=== PATIENT | male | born 1985 | race Hispanic/Latino ===

== ENCOUNTER 2024-09-10 21:33 | Emergency (ER) | payer BC ==
[~2024-09-10] VITALS: Ht 160 cm; Wt 202.5 kg
--- NOTE | 2024-09-10 21:39 | NUR ---
UA CUP PROVIDED
--- NOTE | 2024-09-10 21:53 | ERN ---
ED Note History of Present Illness Stated Complaint: FAST HEART RATE, NAUSEA, GBW Chief Complaint: Multiple Complaints Time Seen by MD: 21:36 Time Seen by Midlevel: 21:36 Dictation: The patient is a 39-year-old male with a history of hypertension, prediabetes who presents to the emergency department with complaints of generalized weakness, tachycardia, nausea onset2 hours ago. Patient reports he was getting ready to take a shower and stood up and develop the symptoms. Patient denies any chest pain or shortness of breath. Denies any fevers. Denies any dizziness. Denies any recent illness. Allergies: Coded Allergies: No Known Allergies (Unverified Allergy, Unknown, 09/10/24) Past Medical History Past Medical History: Hypertension, Other Additional Past Medical Hx: TIA 10 YEARS AGO Surgical History: None RN Note Reviewed/Agreed w/PFSH: Yes Review of System Dictation Constitutional: Negative for fever,chills, and weight loss Eyes: Negative for injury, pain,redness, and discharge ENT: Negative for injury,pain or swelling Cardiovascular: Negative for chest pain, and edema positive for palpitations Respiratory: Negative for shortness of breath, cough, and wheezing, Abdomen/GI: Negative for abdominal pain, nausea, vomiting, diarrhea, and constipation Back: Negative for injury and pain : Negative for injury, bleeding and discharge MS/Extremity: Negative for injury and deformity Skin: Negative for rash, and discoloration Neuro: Negative for headache, numbness, tingling, and seizure positive for weakness Psych: Negative for suicide ideation, homicidal ideation, and hallucinations Initial Vital Sign VS Vital Signs Date Time Temp Pulse Resp B/P (MAP) Pulse Ox O2 Delivery O2 Flow Rate FiO2 09/10/24 21:35 98.2 84 22 171/87 99 Room Air 09/10/24 22:33 0 21 Physical Exam Dictation Vital Signs reviewed General Appearance: Alert, oriented x 3, no acute distress, well developed, nourished. Head and Face: non-traumatic. Eyes: PERRL, pink conjunctivas, eyelid no trauma, anterior chamber with arcus senilis. Ears: Pinnas intact and no signs of trauma or erythema ear canals clear and no discharge TM no erythema Nose: No discharge, no bleeding. Oropharynx: Mouth normal, tongue pink. pharynx clear,no erythema, tonsils no exudates, no abscesses noted, mucous membrane moist Neck: Supple, non-tender, no thyromegaly, no masses, no JVD, no bruits Breast:Deferred Chest:No tenderness, no crepitus, no paradoxical movement, no retractions Lungs:Clear, well-ventilated, symmetric, no rales, no wheezing, no rhonchi, no stridor, good breath sounds bilaterally Heart: Regular rate, regular rhythm, no murmur, no gallops Vascular: no peripheral edema, Abdomen: Soft, positive bowel sounds, nondistended, no guarding, nontender, no rebound, no masses no hepatomegaly, no splenomegaly, no Gilbert's sign, no hernias. Rectal: Deferred Genital: Deferred Neurological: Normal speech, motor function intact, sensory function intact Musculoskeletal: Neck nontender, full range of motion, back nontender, full range of motion, Extremities: nontender, full range of motion Skin: Color pink, dry, no turgor, no rash, no lacerations, no abrasions, no contusions. Lymphatic: Deferred Results (Laboratory/Radiology) Laboratory/Radiology Laboratory Tests Test 09/10/24 22:04 09/10/24 22:30 Urine Color LIGHT-YELLOW (YELLOW) Urine Appearance CLEAR (CLEAR) Urine pH 6.0 (5.0-8.0) Urine Specific [place] 1.006 (1.001-1.031) Urine Protein NEGATIVE mg/dL (NEGATIVE) Urine Glucose (UA) NEGATIVE mg/dL (NEGATIVE) Urine Ketones NEGATIVE mg/dL (NEGATIVE) Urine Occult Blood NEGATIVE (NEGATIVE) Urine Nitrate NEGATIVE (NEGATIVE) Urine Bilirubin NEGATIVE mg/dL (NEGATIVE) Urine Urobilinogen 0.2 mg/dL (0.2-1.0) Urine Leukocyte Esterase NEGATIVE [place]/uL Urine Opiates Screen NEGATIVE (NEGATIVE) Urine Barbiturates Screen NEGATIVE (NEGATIVE) Urine Phencyclidine Screen NEGATIVE (NEGATIVE) Urine Amphetamines Screen NEGATIVE (NEGATIVE) Urine Benzodiazepines Screen NEGATIVE (NEGATIVE) Urine Cocaine Screen NEGATIVE (NEGATIVE) Urine Marijuana (THC) Screen NEGATIVE (NEGATIVE) White Blood Count 9.9 K/uL (4.8-10.8) Red Blood Count 4.86 MIL/uL (4.50-6.20) Hemoglobin 14.2 g/dL (14.0-18.0) Hematocrit 44.3 % (42-54) Mean Corpuscular Volume 91.2 fL (79-99) Mean Corpuscular Hemoglobin 29.2 pg (27.0-33.0) Mean Corpuscular Hemoglobin Concent 32.1 g/dL (32.0-36.0) Red Cell Distribution Width 14.4 % (11.0-15.5) Platelet Count 220 K/uL (130-400) Mean Platelet Volume 10.5 fL (7.5-10.5) Immature Granulocyte % (Auto) 0.4 % (0-1) Neutrophils (%) (Auto) 69.5 % (40.0-77.0) Lymphocytes (%) (Auto) 21.5 % (21.0-51.0) Monocytes (%) (Auto) 7.5 % (3.0-13.0) Eosinophils (%) (Auto) 0.9 % (0.0-8.0) Basophils (%) (Auto) 0.2 % (0.0-5.0) Neutrophils # (Auto) 6.8 K/uL (1.8-7.7) Lymphocytes # (Auto) 2.1 K/uL (1.0-4.8) Monocytes # (Auto) 0.7 K/uL (0.1-1.0) Eosinophils # (Auto) 0.09 K/uL (0.00-0.70) Basophils # (Auto) 0.02 K/uL (0.00-0.20) Absolute Immature Granulocyte (auto 0.04 K/uL (0-1) Nucleated Red Blood Cells 0.0 % (0.0-0.19) Sodium Level 139 mmol/L (136-145) Potassium Level 3.4 mmol/L (3.5-5.1) L Chloride Level 103 mmol/L (101-111) Carbon Dioxide Level 29 mmol/L (21-32) Blood Urea Nitrogen 15 mg/dL (7-18) Creatinine 0.7 mg/dL (0.5-1.3) Glomerular Filtration Rate Calc 121 mL/min (>90) Random Glucose 113 mg/dL (70-105) H Total Calcium 8.9 mg/dL (8.5-10.1) Magnesium Level 1.60 mg/dL (1.80-2.40) L Total Creatine Kinase 124 U/L (21-232) Troponin I High Sensitivity 6 ng/L (4-75) REASON: sob ORDERING PHYSICIAN: TONG BADILLO [employer] PROCEDURE: CXR1VW - CHEST 1VW EXAM: CR Chest, 1 view. CLINICAL HISTORY: Shortness of breath. COMPARISON: None. FINDINGS: The lungs show no infiltrate or other acute findings. No pleural effusion or pneumothorax. The cardiomediastinal silhouette is within normal limits. No acute osseous abnormality. IMPRESSION: No acute cardiopulmonary pathology is evident. /[facility] Labs Reviewed?: Yes EKG: (+) rhythm (Sinus rhythm) EKG Comment: Date:09/10/2024 Time:2218 Ventricular rate:73 WV interval:183 QRS duration:96 QT/QTc:387/428 EKG interpretation: Sinus rhythm Reviewed by ED Attending no STEMI ED Course ED Course Orders Procedure Category Date Status Time Cbc With Differential LAB 09/10/24 Complete 21:47 Chest 1vw RAD 09/10/24 Resulted 21:47 12 Lead Ekg Tracing- EKG 09/10/24 Logged Technical 21:47 0.9%Nacl 1000ml (Ns PHA 09/10/24 Complete 1000ml) 22:00 Magnesium LAB 09/10/24 Complete 21:47 Creatine Kinase, Total LAB 09/10/24 Complete 21:47 Troponin I High LAB 09/10/24 Complete Sensitivity 21:47 Urinalysis Profile LAB 09/10/24 Complete 21:47 Basic Metabolic Panel LAB 09/10/24 Complete 21:47 Drug Screen Urine LAB 09/10/24 Complete 21:47 Magnesium Oxide PHA 09/10/24 Complete (Mag-Ox) 23:30 Potassium Bicarb/Cit PHA 09/10/24 Complete Ac 25meq (K-Lyte Ta 23:30 Current Medications Medications (Trade) Dose Ordered Sig/Oh Route PRN Reason Start Time Stop Time Status Last Admin Dose Admin Magnesium Oxide (Mag-Ox) 400 mg ONCE ONCE PO 09/10/24 23:30 09/10/24 23:31 DC 09/10/24 23:33 Potassium Bicarbonate (K-Lyte Tablet Eff 25 Meq Tablet.eff) 25 meq ONCE ONCE PO 09/10/24 23:30 09/10/24 23:31 DC 09/10/24 23:32 Sodium Chloride 1,000 ml @ 0 mls/hr ONCE ONCE IV 09/10/24 22:00 09/10/24 22:01 DC 09/10/24 22:40 Vital Signs Date Time Temp Pulse Resp B/P (MAP) Pulse Ox O2 Delivery O2 Flow Rate FiO2 09/10/24 23:33 80 17 134/67 100 Room Air* 0 21 09/10/24 22:33 98.4 75 17 143/77 100 Room Air* 0 21 09/10/24 21:35 98.2 84 22 171/87 99 Room Air Medical Decision Making MDM The patient is a 39-year-old male with a history of hypertension, prediabetes who presents to the emergency department with complaints of generalized weakness, tachycardia, nausea onset 2 hours ago. Patient reports he was getting ready to take a shower and stood up and develop the symptoms. Patient denies any chest pain or shortness of breath. Denies any fevers. Denies any dizziness. Denies any recent illness. CBC showed no leukocytosis, no anemia, chemistry showed mild hypokalemia, hypomagnesemia electrolytes were replaced. Normal renal function, negative troponin. Chest x-ray showed no acute pathology. EKG showed sinus rhythm. On physical exam patient is in no acute distress, nontoxic appearance, neurologically intact. No arrhythmias during ER stay. Patient reports he feels much better and no longer having any symptoms. Labs and imaging discussed with the patient who agrees to be discharged and follow up with PCP. Differential diagnosis: Dehydration, tachyarrhythmia, ACS, pneumonia, orthostatic hypotension, electrolyte imbalance Need for hospitalization: Patient does not meet criteria for hospitalization. There are no social concerns with this patient. DX & DISP Disposition: Discharge Departure Impression: Primary Impression: Mild dehydration Additional Impressions: Hypokalemia, Hypomagnesemia, Palpitations Condition: Stable Additional Instructions: Your potassium and magnesium were slightly decreased. They were replaced in the ER. Otherwise the rest of your labs look unremarkable. Follow up with your [facility] doctor and continue oral hydration at home. If anything worsens please return to ER. FOLLOW-UP WITH PRIMARY CARE PROVIDER IN 1 TO 2 DAYS. TAKE MEDICATIONS DIRECTED HERE IN THE EMERGENCY ROOM. OKAY TO CONTINUE HOME MEDICATIONS UNLESS OTHERWISE DISCUSSED DURING YOUR VISIT IN THE EMERGENCY ROOM TODAY. RETURN TO YOUR NEAREST EMERGENCY ROOM IF SYMPTOMS WORSEN OR IF THERE IS NO IMPROVEMENT. CALL 911 IF YOU NEED IMMEDIATE ASSISTANCE. TAKE TYLENOL [id number] NEEDED AND IF NO CONTRAINDICATIONS ARE PRESENT. INCREASE ORAL HYDRATION. A WOUND CULTURE OR URINE CULTURE WAS ORDERED HERE IN THE EMERGENCY ROOM DEPARTMENT PLEASE FOLLOW-UP WITH PRIMARY CARE PROVIDER AND ADVISE THEM TO GET REPEAT PORTS FROM OUR FACILITY. IF YOU HAD ANY MARILY WRAP/SPLINTS THAT WERE APPLIED HERE, PLEASE DO NOT REMOVE THEM UNTIL YOU SEE YOUR PRIMARY CARE OR SPECIALTY. Time of Disposition: 00:47 I have reviewed the case, and I agree with, Diagnosis and Plan TONG BADILLO [employer] Sep 10, 2024 21:53
--- NOTE | 2024-09-10 22:04 | NUR ---
UA COLLECTED AND SENT
[2024-09-10 22:25] LABS: APPEARANCE,URINE CLEAR (CLEAR); GLUCOSE, URINE (UA) NEGATIVE (NEGATIVE); LEUKOCYTE ESTERASE ,URINE NEGATIVE Leu/uL (NEGATIVE); NITRATE,URINE NEGATIVE (NEGATIVE); OCCULT BLOOD,URINE NEGATIVE (NEGATIVE)
[2024-09-10 22:26] LABS: ADD UA MICROSCOPIC NO
[2024-09-10 22:33] VITALS: TEMP 98.5
[2024-09-10 22:36] LABS: AMPHET/METH SCREEN,URINE NEGATIVE (NEGATIVE); BARBITURATE SCREEN, URINE NEGATIVE (NEGATIVE); CANNABINOID SCREEN,URINE NEGATIVE (NEGATIVE); COCAINE SCREEN,URINE NEGATIVE (NEGATIVE)
[2024-09-10 22:40] LABS: IMMATURE GRANULOCYTE ABSOLUTE 0.04 K/uL (0-1); NUCLEATED RED BLOOD CELLS 0.0 % (0.0-0.19); PLATELET COUNT (AUTO) 220 K/uL (130-400); RED BLOOD CELL COUNT(AUTO) 4.86 MIL/uL (4.50-6.20); RED CELL DISTRIBUTION WIDTH 14.4 % (11.0-15.5); WHITE BLOOD COUNT (AUTO) 9.9 K/uL (4.8-10.8)
[2024-09-10] MEDS: 0.9%NACL 1000ML 1,000 ML IV ONE (22:40)
[2024-09-10 22:48] LABS: CREATININE 0.7 mg/dL (0.5-1.3); GLOMERULAR FILTR. RATE CALC 121.0 mL/min (>90); GLUCOSE,RANDOM 113.0 mg/dL (70-105); SODIUM SERUM 139.0 mmol/L (136-145); UREA NITROGEN, BLOOD 15.0 mg/dL (7-18)
[2024-09-10 22:53] LABS: CREATINE KINASE, TOTAL 124.0 U/L (21-232)
[2024-09-10] MEDS: MAGNESIUM OXIDE 400 MG TABLET PO ONE (23:33)
--- NOTE | 2024-09-11 00:30 | HMCIMG ---
EXAM: CR Chest, 1 view. CLINICAL HISTORY: Shortness of breath. COMPARISON: None. FINDINGS: The lungs show no infiltrate or other acute findings. No pleural effusion or pneumothorax. The cardiomediastinal silhouette is within normal limits. No acute osseous abnormality. IMPRESSION: No acute cardiopulmonary pathology is evident. /[place]
[2024-09-11 01:39] VITALS: BP 134/79; PULSE 84; RESP 17; O2SAT 100
--- NOTE | 2024-09-11 07:21 | EKG ---
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
== END 2024-09-11 01:50 | disposition home or self-care (01) ==
LOC: EDH 21:33
DX: E86.0 Dehydration (principal); E87.6 Hypokalemia; E83.42 Hypomagnesemia; R00.2 Palpitations; I10 Essential (primary) hypertension; Z86.73 Personal history of transient ischemic attack (TIA), and cerebral infarction without residual deficits
CPT/HCPCS: 99284; 96360; 96361; 71045; 82550; 83735; 84484; 80048; 80305; 85025; 36415; 93005; 81003; J7030